=== PATIENT | male | born 1970 | race Native Hawaiian/Other Pacific Islander ===

== ENCOUNTER 2021-04-19 08:44 | Outpatient (CLI) | payer BC, OTHER ==
[~2021-04-19] VITALS: Ht 175.3 cm; Wt 110.4 kg
== END 2021-04-19 11:38 | disposition home or self-care (01) ==
LOC: INF 08:44 → EDBD 09:00 → INF 11:38
PROVIDERS: ATTEND Internal Medicine
DX: Z23 Encounter for immunization (principal); U07.1 COVID-19
CPT/HCPCS: 96365; M0244